=== PATIENT | male | born 1990 | race Caucasian/White ===

== ENCOUNTER 2024-09-17 07:06 | Emergency (ER) | payer SELFPAY ==
[~2024-09-17] VITALS: Ht 177.8 cm; Wt 84.0 kg
[2024-09-17 08:01] VITALS: O2SAT 97
[2024-09-17] MEDS ORDERED: ACET-2708 MT (10:40)
[2024-09-17] MEDS: BACITRACIN ZINC OINT UDPKT TOP ONE (10:47)
[2024-09-17] MEDS: LIDOCAINE HCL 1% 20ML VIAL INFIL ONE (10:47)
[2024-09-17] MEDS: TETANUS, DIPHTHERIA, PERTUSSIS VAC/PF 0.5ML (>10YR OLD) IM ONE (10:53)
[2024-09-17 11:26] VITALS: BP 138/87; PULSE 80; RESP 16; TEMP 36.83628; O2SAT 97
== END 2024-09-17 11:27 | disposition home or self-care (01) ==
LOC: ER 07:06
DX: S61.211A Laceration without foreign body of left index finger without damage to nail, initial encounter (principal); W26.0XXA Contact with knife, initial encounter; Y93.89 Activity, other specified; Y92.89 Other specified places as the place of occurrence of the external cause; Y99.8 Other external cause status; Z88.0 Allergy status to penicillin
CPT/HCPCS: 73130; 90715; 12002; 90471; 99283; J3490; Z7610